=== PATIENT | male | born 2000 | race Hispanic/Latino ===

== ENCOUNTER 2020-07-24 17:57 | Emergency (ER) | payer OTHER ==
[2020-07-24 19:35] LABS: Anion Gap 15 mmol/L (10-20); BUN (Urea Nitrogen) 10 mg/dL (8.9-20.6); Calc. Creatinine Clearance 0 mL/min (70-130); Calcium 9.1 mg/dL (7.8-10.44); Carbon Dioxide 24 mmol/L (22-29); Chloride 103 mmol/L (98-107); Glucose 118 mg/dL (70-105); Magnesium 2.1 mg/dL (1.7-2.2); Potassium 3.8 mmol/L (3.5-5.1); Sodium 138 mmol/L (136-145)
== END 2020-07-24 21:06 | disposition home or self-care (01) ==
LOC: CSHERS 17:57
DX: G56.21 Lesion of ulnar nerve, right upper limb (principal)
CPT/HCPCS: 80048; 83735; 99284